=== PATIENT | female | born 1985 | race Two or more races ===

== ENCOUNTER 2018-11-30 20:13 | Emergency (ER) | payer SELFPAY ==
[~2018-11-30] VITALS: Ht 162.6 cm; Wt 61.2 kg
[2018-11-30 20:57] LABS: BASOPHILS # (AUTO) 0.02 x10^3/uL (0-0.1); BASOPHILS % (AUTO) 0 % (0-1); EOSINOPHILS # (AUTO) 0.12 x10^3/uL (0-0.4); EOSINOPHILS % (AUTO) 2 % (1-7); LYMPHOCYTES # (AUTO) 1.56 x10^3/uL (1-3.4); LYMPHOCYTES % (AUTO) 22 % (22-44); MD NO; MEAN CORPUSCULAR HEMOGLOBIN 30.6 pg (27.0-34.8); MEAN CORPUSCULAR HGB CONC 32.7 g/dL (32.4-35.8); MEAN CORPUSCULAR VOLUME 93.7 fL (80-100); MEAN PLATELET VOLUME 8.2 fL (7.4-10.4); MONOCYTES # (AUTO) 0.53 x10^3/uL (0.2-0.8); MONOCYTES % (AUTO) 7 % (2-9); NEUTROPHILS # (AUTO) 4.97 x10^3/uL (1.8-6.8); NEUTROPHILS % (AUTO) 69 % (42-75); PLATELET COUNT 258 x10^3/uL (130-400); RED BLOOD COUNT 4.86 x10^6/uL (3.82-5.3); RED CELL DISTRIBUTION WIDTH 13.4 % (9.6-15.2)
--- NOTE | 2018-11-30 21:03 | NUR ---
PT AMBULATED TO BR WITHOUT DIFFICULTY. INSTRUCTED ON CLEAN CATCH URINE SAMPLE.
[2018-11-30 21:08] LABS: ANION GAP 5 mmol/L (5-15); CALCIUM 8.5 mg/dL (8.5-10.1); CHLORIDE 108 mmol/L (98-107); CREATININE 0.79 mg/dL (0.55-1.02)
[2018-11-30 21:08] LABS: RAPID INFLUENZA A Negative (Negative); RAPID INFLUENZA B Negative (Negative)
--- NOTE | 2018-11-30 21:15 | NUR ---
PT REQUESTING MEDICATION FOR HEADACHE. ERP NOTIFIED, WILL BE IN TO SEE PT.
--- NOTE | 2018-11-30 21:29 | NUR ---
ERP AT BS.
[2018-11-30] MEDS ORDERED: PROCHLORPERAZINE 5 MG/ML, 2ML ONE (21:46)
[2018-11-30] MEDS ORDERED: DIPHENHYDRAMINE 50 MG/ML, 1ML ONE (21:46)
[2018-11-30] MEDS ORDERED: KETOROLAC 30 MG/1 ML ONE (21:46)
[2018-11-30 21:49] LABS: HCG UR SG 1.016 (1.003-1.030); MICROSCOPIC AUTO
[2018-11-30 21:52] LABS: CULTURE INDICATED? YES
[2018-11-30] MEDS ORDERED: PROCHLORPERAZINE 5 MG/ML, 2ML IVPush ONE (22:00)
[2018-11-30] MEDS ORDERED: KETOROLAC 30 MG/1 ML IVPush ONE (22:00)
[2018-11-30] MEDS ORDERED: DIPHENHYDRAMINE 50 MG/ML, 1ML IVPush ONE (22:00)
[2018-11-30 22:08] VITALS: BP 111/78
--- NOTE | 2018-11-30 22:08 | NUR ---
IV PLACED AND PT MEDICATED PER ORDERS. ERP WAS IN FOR RECHECK.
--- NOTE | 2018-11-30 22:37 | NUR ---
PT STATES SHE FEELS BETTER AFTER MEDS. SLIGHTLY SLEEPY. D/C INSTRUCTIONS, MEDS & F/U APPT RV'WD WITH PT AND UNCLE, THEY VERBALIZE UNDERSTANDING. RX GIVEN X2. PT AMBULATED OUT OF ED WITH UNCLE WITHOUT DIFFICULTY.
== END 2018-11-30 22:42 | disposition home or self-care (01) ==
LOC: ED 22:15
DX: G44.219 Episodic tension-type headache, not intractable (principal)
CPT/HCPCS: 36415; 80048; 81001; 81025; 85025; 87086; 87400; 96374; 96375; 99283; J0780; J1200; J1885